=== PATIENT | male | born 1950 | race Caucasian/White ===

== ENCOUNTER 2023-08-05 08:13 | Outpatient (CLI) | payer OTHER, SELFPAY | END 2023-08-05 08:14 | disposition home or self-care (01) | LOC: NFLDREF 08-06 11:31 | PROVIDERS: PCP Family Medicine; Referring Provider Family Medicine; Visit Provider Family Medicine | DX: E78.5 Hyperlipidemia, unspecified (principal); Z12.5 Encounter for screening for malignant neoplasm of prostate | CPT/HCPCS: 80053; 80061; 84153 ==

== ENCOUNTER 2024-01-04 08:34 | Outpatient (CLI) | payer OTHER, SELFPAY | END 2024-01-04 08:35 | disposition home or self-care (01) | LOC: NFLDREF 01-05 06:49 | PROVIDERS: PCP Family Medicine; Referring Provider Family Medicine; Visit Provider Family Medicine | DX: E78.5 Hyperlipidemia, unspecified (principal) | CPT/HCPCS: 80061; 84450; 84460 ==

== ENCOUNTER 2024-08-10 08:15 | Outpatient (CLI) | payer OTHER, SELFPAY | END 2024-08-10 08:16 | disposition home or self-care (01) | LOC: NFLDREF 13:48 | PROVIDERS: PCP Family Medicine; Referring Provider Family Medicine; Visit Provider Family Medicine | DX: E78.5 Hyperlipidemia, unspecified (principal); Z12.5 Encounter for screening for malignant neoplasm of prostate | CPT/HCPCS: 80053; 80061; G0103 ==

== ENCOUNTER 2024-08-29 10:14 | Outpatient (CLI) | payer OTHER, SELFPAY ==
--- OUTSIDE RECORDS SUMMARY | 2024-08-29 10:16 | XMS_ITS | Clinical Summary ---
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 1 Inhaler 1 12/27/2018 Active Spiriva Respimat 2.5 mcg/actuation mist for inhalation INHALE 2 PUFFS BY MOUTH DAILY 02/18/2022 Active predniSONE (DELTASONE) 5 mg tabletIndications:Acu te non-recurrent maxillary sinusitis,Sinus pain Take 20 mg oral daily for 2 days, then Take 10 mg oral daily for 2 days, then Take 5 mg oral daily for 2 days, take with foods 14 Tablet 03/02/2022 Active Active Problems Problem Noted Date Diagnosed Date Acute maxillary sinusitis, unspecified 9 Assessment & Plan (12/26/2018 3:41 PM CDT): He has been having symptoms for 5 days Wheezing 12/26/2018 Assessment & Plan (12/26/2018 3:41 PM CDT): PFT in the hospital Albuterol inhaler every 4-6 hours as needed Methyprednisone 125 mg IM Impetigo 03/14/2012 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 Celiac disease 04/01/2011 Tobacco use disorder 12/11/2009 Cervicalgia 03/30/2006 BURSITIS MONONUCLEOSIS Immunizations Name Administration Dates Next Due AMB Influenza, IIV3 (Age >=3 years)(Flu Clinic Only) 07/22/2011,07/22/2011,07/11/2009,2007 Influenza A (H1N1), Inactivated 10/03/2009 Influenza A (H1N1), Inactiva debbie (Age >=3 Years) 10/03/2009 Influenza, High-dose Inactivated 07/16/2015 Influenza, IIV3 (Age 6-35 mos) 07/22/2011 Influenza, IIV3 (Age >=3 years) 08/10/20 16,08/04/2013,07/25/2012,2009,07/11/2009,08/13/2008,08/25/2005,1 Influenza, IIV4 07/28/2018,07/27/2017,08/06/2014 Pneumococcal Poly,23-Valent (Pneumovax) 07/28/2018,04/01/2011 Td (Age >=7 Years) 03/04/1999 Tdap 12/11/2009 Family History Medical History Relation Name Comments Alcohol/Drug Brother Hepatitis C fro m ETOH Asthma Father Heart Disease Father CABG x 3 2002? Stroke Father Relation Name Status Comments Brother Father Social History Tobacco Use Types Packs/Day Years Used Date Smoking Tobacco: Every Day Cigars Last attempted to quit: 12/11/2011 Smokeless Tobacco: Never Tobacco Cessation:Ready to Q uit: No; Counseling Given: Yes Alcohol Use Standard Drinks/Week Comments Yes 0 (1 standard drink = 0.6 oz pur e alcohol) rare 3-4 times a year Sex and Gender Information Value Date Recorded Sex Assigned at Not on file Gender Identity Not on file Sexual Orientation Not on file Obstetrics History Last Filed Vital Signs Vital Sign Reading Time Taken Comments Blood Pressure 140/84 03/02/2022 4:44 PM CDT Pulse 112 03/02/2022 4:44 PM CDT Temperature 36.7 C (98 F) 03/02/2022 4:44 PM CDT Respiratory Rate 20 03/02/2022 4:44 PM CDT Oxygen Saturation 96% 03/02/2022 4:44 PM CDT Inhaled Oxygen Concentration - - Weight 115.2 kg (254 lb) 12/26/2018 3:22 PM CDT Height 175.3 cm (5' 9) 12/26/2018 3:22 PM CDT Body Mass Index 37.51 12/26/2018 3:22 PM CDT Plan of Treatment Health Maintenance Due Date Last Done Comments Depression screening for age 12+ 1962 Hepatitis C screening for ag e 18-79 1968 Zoster (shingles) series for age 50+ (1 of 2) 2000 Medicare Wellness for age 65+ 2015 Lipids for age 45-75 09/08/2018 09/08/2013, 07/22/2011, 04/01/2011, Additional history exists Pneumococcal series for age 65+ (2 of 2 - PCV) 07/28/2019 07/28/2018, 04/01/2011 Tetanus booster 12/12/2019 12/11/2009, 03/04/1999 BMI (ht and wt on same day) for age 18+ 12/27/2019 12/26/2018, 06/03/2018, 08/10/2017, Additional history exists Colonoscopy through age 75 12/26/202312/25, 12/25/2013, 11/30/2008 (Completed outside of [facility]) COVID-19 vaccine series (2023- season) 2024 07/14/2023, 07/11/2022, 08/21/2021, Additional history exists Influenza for age 65+ 06/04/2024 07/28/2018 , 07/27/2017, 07/27/2017, Additional history exists Tdap Completed 12/11/2009 Procedures Procedure Name Priority Date/Time Associated Diagnosis Comments COLONOSCOPY SCREENING Routine 12/25/2013 10:25 AM CDT History of colon polyps LIPID PANEL W REFLEX MEASURED LDL Routine 09/08/2013 12:17 PM MEDICAL ASSISTANT Screening, lipid from Last 3 Months or Most Recently Relevant to Health Maintenance Results * COLONOSCOPY SCREENING (12/25/2013 10:25 AM CDT) Narrative Ez Head MD - 12/25/2013 10:25 AM CDT Ez Head MD 12/25/2013 10:25 AM DATE OF SERVICE: 12/25/2013 PREOPERATIVE DIAGNOSIS Colon polyp follow up POSTOPERATIVE DIAGNOSIS Normal Colon PROCEDURE Complete Colonoscopy ANESTHESIA Versed 2.5 mg IV and Fentanyl 150 mcg IV (Moderate Sedation) EBL None SPECIMEN None INDICATIONS This is a 63 y.o. patient sent over for a colonoscopy. He has a history for hyperplastic polyp. The patient was consented for the above procedure to include the small chance for colon perforation, bleeding after polypectomy or biopsy either immediate or delayed and the possibility of missing polyps. SUMMARY OF PROCEDURE The patient was taken to the endoscopy suite where the above IV sedation was administered. They were placed in left lateral decubitus position with their knees and hips flexed. Digital rectal exam was normal. Colonoscope was passed to the cecum. Upon withdrawal of the scope the colon prep was adequate. The cecum, ascending, transverse, descending, sigmoid, rectum and on retroflex view were otherwise negative. The patient tolerated the procedure well. I suggested a repeat colonoscopy in 10 years. EZ HEAD MD Procedure Note Ez Head MD - 12/25/2013 10:25 AM CDT DATE OF SERVICE: 12/25/2013 PREOPERATIVE DIAGNOSIS Colon polyp follow up POSTOPERATIVE DIAGNOSIS Normal Colon PROCEDURE Complete Colonoscopy ANESTHESIA Versed 2.5 mg IV and Fentanyl 150 mcg IV (Moderate Sedation) EBL None SPECIMEN None INDICATIONS This is a 63 y.o. patient sent over for a colonoscopy. He has a historyfor hyperplastic polyp. The patient was consented for the above procedureto include the small chance for colon perforation, bleeding afterpolypectomy or biopsy either immediate or delayed and the possibility ofmissing polyps. SUMMARY OF PROCEDURE The patient was taken to the endoscopy suite where the above IV sedationwas administered. They were placed in left lateral decubitus positionwith their knees and hips flexed. Digital rectal exam was normal.Colonoscope was passed to the cecum. Upon withdrawal of the scope thecolon prep was adequate. The cecum, ascending, transverse, descending,sigmoid, rectum and on retroflex view were otherwise negative. Thepatient tolerated the procedure well. I suggested a repeat colonoscopy in10 years. EZ HEAD MD Ez Head MD GI PROCEDURE ORD * (ABNORMAL) LIPID PANEL W REFLEX MEASURED LDL (09/08/2013 12:17 PM MEDICAL ASSISTANT) CHOLESTEROL,TOTA L 190 100 - 199 mg/dL [facility] TRIGLYCERIDES 130 <150 mg/dL [facility] HDL CHOLESTEROL 36(L) >40 mg/dL [facility] CHOL/HDL RATIO 5.28(H) <4.50 [facility] NON-HDL CHOLESTEROL 154 Undefined mg/dL [facility] LDL CHOLESTEROL 128 <131 mg/dL [facility] PATIENT STATUS Fasting [facility] Blood specimen (specimen) BLOOD SPECIMEN / Unknown 09/08/2013 12:17 PM MEDICAL ASSISTANT 09/08/2013 12:06 PM MEDICAL ASSISTANT Isreal Uribe MD CHEMISTRY [facility] INTERNAL ZIP [id number] [place] [id number] from Last 3 Months or Most Recently Relevant to Health Maintenance Advance Directives * Full Code (Latest Code Status on File) Date Activated Date Inactivated Comments 12/25/2013 8:52 AM 12/25/2013 12:52 PM * Full Code Date Activated Date Inactivated Comments 11/30/2008 9:35 AM 12/01/2008 2:12 AM Care Teams Roller Leveler Operator Relationship Specialty Start Date End Date [address] [address] PCP - General 05/15/24
--- NOTE | 2024-08-29 13:01 | P.ANES_ITS ---
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
--- NOTE | 2024-08-29 13:33 | W.ANESCHARGE ---
Anesthesia Charges Start Date/Time Anesthesia Start Date: 08/29/24 Anesthesia Start Time: 11:30 Stop Date/Time Anesthesia Stop Date: 08/29/24 Anesthesia Stop Time: 12:58 Summary Extremes of Age - Over 70 or under 1: MDA
== END 2024-08-29 10:15 | disposition home or self-care (01) ==
LOC: OP CLINIC 10:15
PROVIDERS: PCP Family Medicine; Visit Provider Surgery
DX: Z12.11 Encounter for screening for malignant neoplasm of colon (principal); R19.5 Other fecal abnormalities; D12.2 Benign neoplasm of ascending colon; D12.0 Benign neoplasm of cecum; D12.3 Benign neoplasm of transverse colon; D12.4 Benign neoplasm of descending colon; D12.5 Benign neoplasm of sigmoid colon; D12.8 Benign neoplasm of rectum
CPT/HCPCS: 00811; 45385; 88305; 99100; J2704

== ENCOUNTER 2024-09-13 09:04 | Outpatient (CLI) | payer OTHER, SELFPAY ==
--- NOTE | 2024-09-13 09:15 | CRLHL7_ITS ---
For Patients: As a result of the Century Cures Act, medical imaging exams and procedure reports are released immediately into your electronic medical record. You may view this report before your referring provider. If you have questions, please contact your health care provider. Examination: US abdominal aorta Indication: Abdominal aortic aneurysm screening. Technique: Tellez scale and color Doppler images of the aorta and common iliac arteries are obtained. Comparison: None Findings: Proximal aorta: 3.6 x 4.2 cm Mid aorta: 2.6 x 2.1 cm Distal aorta: 2.7 x 2.9 cm Right common iliac artery: 1.5 x 1.8 cm Left common iliac artery: 1.3 x 2.4 cm Recommended imaging interval for ectatic aorta: 4.0-4.4 cm: 1 year Impression: Proximal abdominal aortic aneurysm measuring 4.2 cm. Dictated by Leonardo Luis MD @ 09/13/2024 10:46:19 AM (Electronically Signed)
== END 2024-09-13 09:05 | disposition home or self-care (01) ==
PROVIDERS: PCP Family Medicine; Visit Provider Family Medicine
DX: Z13.6 Encounter for screening for cardiovascular disorders (principal); I71.40 Abdominal aortic aneurysm, without rupture, unspecified; Z87.891 Personal history of nicotine dependence
CPT/HCPCS: 76706

== ENCOUNTER 2025-06-12 07:49 | Outpatient (CLI) | payer MEDICARE, SELFPAY ==
--- NOTE | 2025-06-12 09:04 | P.ANES_ITS ---
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
--- NOTE | 2025-06-12 09:04 | W.ANESCHARGE ---
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
--- NOTE | 2025-06-12 10:00 | P.ANES_ITS ---
Anesthesia Charges Start Date/Time Anesthesia Start Date: 06/12/25 Anesthesia Start Time: 08:26 Stop Date/Time Anesthesia Stop Date: 06/12/25 Anesthesia Stop Time: 09:02 Summary Extremes of Age - Over 70 or under 1: MDA Coding CPT Codes CPT Codes: ANES LWR INTST NDSC NOS - [id number] ([id number]) QK - WEB APPLICATIONS DEVELOPER 2-4 CNCRNT ANES PROC, QX - COUNTY HOME DEMONSTRATOR SVC W/ MD MED DIRECTION, P3 - PATIENT W/SEVERE SYS DISEASE Additional Codes: Summary - Extremes of Age - Over 70 or under 1: MDA ([id number])
== END 2025-06-12 07:50 | disposition home or self-care (01) ==
LOC: OP CLINIC 07:52
PROVIDERS: PCP Family Medicine; Visit Provider Surgery
DX: Z12.11 Encounter for screening for malignant neoplasm of colon (principal); Z86.0100 Personal history of colon polyps, unspecified; D12.3 Benign neoplasm of transverse colon; D12.4 Benign neoplasm of descending colon; D12.8 Benign neoplasm of rectum; K57.30 Diverticulosis of large intestine without perforation or abscess without bleeding
CPT/HCPCS: 00811; 45385; 88305; 99100; J2704

== ENCOUNTER 2025-09-07 08:12 | Outpatient (CLI) | payer MEDICARE, SELFPAY | END 2025-09-07 08:13 | disposition home or self-care (01) | LOC: NFLDREF 09-12 10:15 | PROVIDERS: PCP Family Medicine; Referring Provider Family Medicine; Visit Provider Family Medicine | DX: E78.5 Hyperlipidemia, unspecified (principal); Z12.5 Encounter for screening for malignant neoplasm of prostate | CPT/HCPCS: 80053; 80061; 84443; G0103 ==

== ENCOUNTER 2025-09-17 08:49 | Outpatient (CLI) | payer MEDICARE, SELFPAY | END 2025-09-17 08:50 | disposition home or self-care (01) | LOC: RAD 08:50 | PROVIDERS: PCP Family Medicine; Visit Provider Internal Medicine Cardiovascular Disease | DX: I48.91 Unspecified atrial fibrillation (principal); I51.7 Cardiomegaly | CPT/HCPCS: 93306 ==